=== PATIENT | male | born 1990 | race American Indian/Alaskan Native ===

== ENCOUNTER 2017-11-29 11:41 | Emergency (ER) | payer MEDICAID, OTHER ==
[2017-11-29 12:15] VITALS: BP 133/82; PULSE 82; RESP 18; TEMP 98.2; O2SAT 99
--- NOTE | 2017-11-29 12:54 | ED PDOC ---
Arrival/HPI - General Chief Complaint: ENT Problem Time Seen by Provider: 11/29/17 12:53 Historian: Patient - History of Present Illness Narrative History of Present Illness (Text): 11/29/17 13:48 27yr old male with clogged sensation in left ear x 2 day. Patient is complaining of slight pain and decreased hearing. He denies any trauma or injury. He denies fevers or chills. Patient denies using Q-tips. Patient denies sore throat or any other URI symptoms. No other complaints Past Medical History - Provider Review Nursing Documentation Reviewed: Yes - Travel History Have you recently traveled outside [place] w/in the past 3 mons?: No - Infectious Disease Hx of Infectious Diseases: None - Psychiatric Hx Substance Use: No - Anesthesia Hx Anesthesia: No Family/Social History - Physician Review Nursing Documentation Reviewed: Yes Family/Social History: Unknown Family HX Smoking Status: Unknown If Ever Smoked Hx Alcohol Use: Yes Frequency of alcohol use: Socially Hx Substance Use: No Allergies/Home Meds Allergies/Adverse Reactions: Allergies No Known Allergies Allergy (Verified 11/29/17 12:15) Home Medications: Home Meds Medication Instructions Recorded Confirmed No Known Home Med 11/29/17 11/29/17 Review of Systems - Review of Systems Constitutional: absent: Fatigue, Fevers ENT: Hearing Changes, Other (left ear pain) Respiratory: absent: SOB, Cough Cardiovascular: absent: Chest Pain, Palpitations Gastrointestinal: absent: Abdominal Pain, Nausea, Vomiting Neurological: absent: Headache, Dizziness Psychiatric: absent: Anxiety, Depression Physical Exam Vital Signs Reviewed: Yes Vital Signs Temp Pulse Resp BP Pulse Ox 11/29/17 12:12 98.2 F 82 18 133/82 99 Temperature: Afebrile Blood Pressure: Normal Pulse: Regular Respiratory Rate: Normal Appearance: Positive for: Well-Appearing, Non-Toxic, Comfortable Pain Distress: None Mental Status: Positive for: Alert and Oriented X 3 - Systems Exam Head: Present: Atraumatic Pupils: Present: PERRL Extroacular Muscles: Present: EOMI Ears: Present: Other (left TM obstructed by cerumen) Mouth: Present: Moist Mucous Membranes Pharnyx: Present: Normal Neck: Present: Normal Range of Motion Respiratory/Chest: Present: Clear to Auscultation Cardiovascular: Present: Regular Rate and Rhythm Neurological: Present: GCS=15 Skin: Present: Warm, Dry, Normal Color. No: Rashes Psychiatric: Present: Alert, Oriented x 3 Medical Decision Making ED Course and Treatment: 11/29/17 13:51 27-year-old male with left ear pain and decreased hearing for 2 days patient was found to have a left cerumen impaction procedure note: Left ear: Using an 18-gauge Angiocath and sterile water lavage was performed. Large amount of cerumen was removed. Hearing restored. TM without erythema. There is no perforation. No bulging. Patient tolerated procedure well. No complications Patient reassessment: Patient denies pain. Denies decreased hearing. Alert oriented no distress. Stable vital signs I advised follow up with primary care physician within the next 2 days. Advised follow-up with ENT specialist. Advised immediate return if symptoms worsen persist or if new concerning symptoms develop Patient verbalizes understanding of discharge instructions and need for immediate followup. all aspects of this case were discussed the attending of record. Impression: Cerumen impaction Increase fluids Follow-up the primary care physician within the next 2 days Follow-up with the ENT specialist Return if symptoms worsen persist or if new concerning symptoms develop Reassessment Condition: Re-examined, Improved Disposition/Present on Arrival - Present on Arrival Any Indicators Present on Arrival: No History of DVT/PE: No History of Uncontrolled Diabetes: No Urinary Catheter: No History of Decub. Ulcer: No History Surgical Site Infection Following: None - Disposition Have Diagnosis and Disposition been Completed?: Yes Diagnosis: Cerumen impaction Disposition: HOME/ ROUTINE Disposition Time: 12:54 Patient Plan: Discharge Condition: GOOD Discharge Instructions (ExitCare): Ear Wax Impaction (DC) Additional Instructions: Increase fluids Follow-up the primary care physician within the next 2 days Follow-up with the ENT specialist Return if symptoms worsen persist or if new concerning symptoms develop Referrals: PCP,NO [Primary Care Provider] - Follow up with primary Parul Licona MD [Medical Doctor] - Follow up with primary Alon Gray DO [Staff Provider] - Follow up with primary [employer] [facility] [Outside] - Follow up with primary Forms: [facility] ([place]), WORK NOTE
== END 2017-11-29 14:00 | disposition home or self-care (01) ==
LOC: ED 11:41
DX: H61.22 Impacted cerumen, left ear (principal)